=== PATIENT | male | born 1955 | race Caucasian/White ===

== ENCOUNTER 2025-01-20 06:49 | Day surgery (SDC) | payer OTHER ==
[2025-01-20] VITALS (10 sets, daily range): BP systolic 117–146; BP diastolic 60–71; PULSE 70–81; RESP 12–16; TEMP 97.7; O2SAT 93–98
[~2025-01-20] VITALS: Ht 167.6 cm; Wt 76.8 kg
[2025-01-20] MEDS ORDERED: ATOR10TA87 PO (07:25)
[2025-01-20] MEDS ORDERED: METF-438 PO (07:25)
[2025-01-20] MEDS ORDERED: OMEP20CA16 PO (07:25)
[2025-01-20] MEDS ORDERED: GLIP10TA18 PO (07:26)
[2025-01-20] MEDS ORDERED: SITA100T15 PO (07:27)
[2025-01-20] MEDS ORDERED: EMPA25TA PO (07:29)
[2025-01-20] MEDS ORDERED: LOSA-415 PO (07:29)
[2025-01-20] MEDS ORDERED: DESO15CR13 TOP (07:30)
[2025-01-20 07:51] LABS: BASOPHILS % (AUTO) 0.5 % (0-1); EOSINOPHILS # (AUTO) 0.2 X10'3 (0-0.9); HEMATOCRIT 46.8 % (42.0-52.0); HEMOGLOBIN 15.9 g/dl (14.0-17.9); LYMPHOCYTES # (AUTO) 1.5 X10'3 (1.1-4.8); LYMPHOCYTES % (AUTO) 20.7 % (21-51); MEAN CORPUSCULAR HEMOGLOBIN 30.7 PG (27.0-31.0); MEAN CORPUSCULAR HGB CONC 33.9 g/dL (33.0-36.5); MEAN CORPUSCULAR VOLUME 90.4 FL (78-98); MEAN PLATELET VOLUME 8.2 FL (7.4-10.4); MONOCYTES # (AUTO) 0.9 X10'3 (0-0.9); MONOCYTES % (AUTO) 11.5 % (2-12); NEUTROPHILS # (AUTO) 4.8 X10'3 (1.8-7.7); NEUTROPHILS % (AUTO) 64.3 % (42-75); PLATELET COUNT 197 X10'3 (140-440); RED BLOOD COUNT 5.17 X10'6 (4.70-6.10); RED CELL DISTRIBUTION WIDTH 13.8 % (11.5-14.5); WHITE BLOOD COUNT 7.4 X10'3 (4.5-11.0)
[2025-01-20 07:58] LABS: ALBUMIN 4.1 G/DL (3.4-5.0); ANION GAP 8 (8-16); BLOOD UREA NITROGEN 15 MG/DL (7-18); BUN/CREATININE RATIO 19.2 (10.0-20.0); CALCIUM 8.7 MG/DL (8.5-10.1); CHLORIDE 107 MMOL/L (99-107); CREATININE 0.78 MG/DL (0.60-1.10); GLUCOSE 168 MG/DL (70-104); MAGNESIUM 2.1 MG/DL (1.5-2.4); POTASSIUM 4.1 MMOL/L (3.5-5.1); PROTHROMBIN TIME 10.7 SECONDS (9.0-12.0); SODIUM 143 MMOL/L (135-145); TOTAL CARBON DIOXIDE 28.2 MMOL/L (24-32); eCRCL 80 ML/MIN; eGFR > 90 ML/MIN
[2025-01-20] MEDS: sodium bicarbonate 1meq/ml syr 150 ML in dextrose 5%-water 1,000 ML IV ONE (08:16)
[2025-01-20] MEDS: normal saline 1,000 ML IV SCH (08:16)
[2025-01-20] MEDS ORDERED: LIDOcaine 1% (10mg/ml) 2ml vial ONE (08:51)
[2025-01-20] MEDS ORDERED: verapamil 2.5 mg/ml inj IV ONE (08:51)
[2025-01-20] MEDS ORDERED: heparin 1,000unit/ml 10ml vial 10 ML ONE (08:52)
[2025-01-20] MEDS ORDERED: iohexol 350 MG/ML 50ML vial IV ONE (08:52)
[2025-01-20] MEDS ORDERED: iohexol 350MG/ML 100ml bottle IV ONE ×2 (08:52→10:26)
[2025-01-20] MEDS ORDERED: fentaNYL/PF 50MCG/1 ML 2ML syringe ONE (08:52)
[2025-01-20] MEDS ORDERED: midazolam 1 mg/ML 2ml injection ONE ×3 (08:52→10:24)
[2025-01-20] MEDS ORDERED: nitroGLYCERIN 500mcg/5mL D5W 5 ML IV ONE (08:53)
[2025-01-20] MEDS: diphenhydrAMINE 25mg capsule PO PRN (09:06)
[2025-01-20] MEDS ORDERED: HYDROcodone/acetaminophen 5mg/325mg tablet PO PRN (11:15)
[2025-01-20] MEDS ORDERED: HYDROcodone/acetaminophen 10/325mg tab PO PRN (11:15)
[2025-01-20] MEDS ORDERED: ondansetron/PF 4mg/2ml inj IV PRN (11:15)
[2025-01-20] MEDS ORDERED: proCHLORperazine 10 MG/2 ml inj IV PRN (11:15)
[2025-01-20] MEDS ORDERED: mag hydrox/Alum hydrox/simeth 30ml oral suspension PO ONE (12:50)
== END 2025-01-20 14:10 | disposition home or self-care (01) ==
LOC: SSTAY O 06:49
PROVIDERS: ATTEND Internal Medicine Cardiovascular Disease
DX: I35.0 Nonrheumatic aortic (valve) stenosis (principal); I27.20 Pulmonary hypertension, unspecified; I25.10 Atherosclerotic heart disease of native coronary artery without angina pectoris; I10 Essential (primary) hypertension; Z79.899 Other long term (current) drug therapy; E08.22 Diabetes mellitus due to underlying condition with diabetic chronic kidney disease; Z88.8 Allergy status to other drugs, medicaments and biological substances; Z98.890 Other specified postprocedural states; Z80.8 Family history of malignant neoplasm of other organs or systems; Z79.82 Long term (current) use of aspirin
CPT/HCPCS: 36415; 80048; 82948; 83735; 85025; 85610; 93005; 93460; 99152; 99153; A6258; J1644; J2003; J2250; J3010; J3490; J7030; J7070; Q0163; Q9967; A6402; C1751; C1769; C1887; C1894

== ENCOUNTER 2025-02-03 09:45 | Outpatient (CLI) | payer OTHER ==
[~2025-02-03 09:45] MED LIST: ATOR10TA87 PO; DESO15CR13 TOP; EMPA25TA PO; GLIP10TA18 PO; IODIXANOL 320 MG/ML INFUS..BTL 100ML IV ONE; LOSA-415 PO; METF-438 PO; OMEP20CA16 PO; SITA100T15 PO
[2025-02-03 10:35] LABS: BASOPHILS % (AUTO) 0.5 % (0-1); EOSINOPHILS # (AUTO) 0.2 X10'3 (0-0.9); EOSINOPHILS % (AUTO) 3.4 % (0-6); HEMATOCRIT 43.7 % (42.0-52.0); HEMOGLOBIN 15.2 g/dl (14.0-17.9); LYMPHOCYTES # (AUTO) 1.6 X10'3 (1.1-4.8); LYMPHOCYTES % (AUTO) 21.4 % (21-51); MEAN CORPUSCULAR HEMOGLOBIN 31.1 PG (27.0-31.0); MEAN CORPUSCULAR HGB CONC 34.7 g/dL (33.0-36.5); MEAN CORPUSCULAR VOLUME 89.6 FL (78-98); MEAN PLATELET VOLUME 8.5 FL (7.4-10.4); MONOCYTES # (AUTO) 0.7 X10'3 (0-0.9); MONOCYTES % (AUTO) 9.9 % (2-12); NEUTROPHILS # (AUTO) 4.7 X10'3 (1.8-7.7); NEUTROPHILS % (AUTO) 64.8 % (42-75); PLATELET COUNT 199 X10'3 (140-440); RED BLOOD COUNT 4.87 X10'6 (4.70-6.10); RED CELL DISTRIBUTION WIDTH 13.3 % (11.5-14.5); WHITE BLOOD COUNT 7.3 X10'3 (4.5-11.0)
[2025-02-03 10:45] LABS: APTT 25 SECONDS (22-32); PROTHROMBIN TIME 10.6 SECONDS (9.0-12.0)
[2025-02-03 10:59] LABS: ALANINE AMINOTRANSFERASE 34 U/L (12-78); ALBUMIN 3.9 G/DL (3.4-5.0); ALBUMIN/GLOBULIN RATIO 1.3 (1.1-1.5); ALKALINE PHOSPHATASE 115 IU/L (46-116); ANION GAP 8 (8-16); ASPARTATE AMINO TRANSFERASE 24 U/L (10-37); BILIRUBIN,TOTAL 0.7 MG/DL (0.1-1.0); BLOOD UREA NITROGEN 15 MG/DL (7-18); CALCIUM 8.8 MG/DL (8.5-10.1); CHLORIDE 104 MMOL/L (99-107); CREATININE 0.79 MG/DL (0.60-1.10); GLUCOSE 205 MG/DL (70-104); PRO BRAIN NATRIURETIC PEPTIDE 87 PG/ML (0-125); SODIUM 141 MMOL/L (135-145); TOTAL CARBON DIOXIDE 29.4 MMOL/L (24-32); eGFR > 90 ML/MIN
--- NOTE | 2025-02-03 11:32 | VASCULAR REPORT ---
CAROTID ARTERIAL DOPPLER CLINICAL HISTORY: Preop. TECHNIQUE: Doppler study of bilateral carotid/vertebral arteries were performed. Comparison: None FINDINGS: There is intimal thickening in the bilateral common carotid arteries. The bilateral common carotid, e xternal and internal carotid arteries appear patent without hemodynamically significant stenosis. Th ere is no significant flow limiting plaque formation identified.The spectral wave forms and peak syst olic velocities are within normal limits. Antegrade flow is present within the vertebral arteries. Right ICA/CCA PSV ratio = 1.5 . Left ICA/CCA PSV ratio = 1.0 . IMPRESSION: 1. No hemodynamically significant stenosis within the carotid arteries. HS:Y
--- NOTE | 2025-02-03 12:03 | RADIOLOGY REPORT ---
DI CHEST,TWO VIEWS CLINICAL HISTORY: TAVR COMPARISON: None TECHNIQUE: Frontal and lateral view of the chest was obtained FINDINGS: Lines and Tubes: None Lungs: No focal consolidation. Pleura: No effusion. No pneumothorax. Cardiomediastinal contours: Unremarkable Bones: No acute osseous abnormality. IMPRESSION: No acute cardiopulmonary disease.
--- NOTE | 2025-02-04 13:07 | RADIOLOGY REPORT ---
Procedure: CT CTA TAVR Reason for study/Clinical History: Chest pain, evaluate for dissection. Comparison Study: None available at time of dictation. Exam Date: 02/03/2025 12:48 PM TECHNIQUE: Multiplanar reformatted images were generated from volumetric data acquired on a multidetector CT [facility]. Cardiac gating was utilized. Arterial phase images were obtained through the chest, abdomen and pelvis following intravenous administration of contrast material. 100 mL visipaque [address] dose reduction techniques were utilized. 3-D reconstructions were performed on an independent work station. Radiation Dose Information: CT Dose: CTDI volume is 65 mGy. Dose-length product is 2232 mGy*cm FINDINGS: Vascular: Aortic measurements: Aortic annulus: 26.2 x 20.8 mm Sinus of valsalva: right cusp 29.9 mm, left cusp 30.7 mm, non-coronary cusp 32.7 mm Right coronary distance: 15 Left coronary distance: 17.6 ST junction 24.4 mm Ascending aorta 28.4 mm Aortic arch 24.9 mm Descending aorta 23.3 mm Aortic hiatus 20.8 mm Upper abdominal aorta 18 mm Minimal abdominal aorta 9.38 mm Right common iliac 6.48 mm, tortuosity index 1.03 Left common iliac 6.21 mm, tortuosity index 1.04 There is normal caliber of aorta. No aortic dissection. Aortic arch anatomy is conventional. There is conventional coronary artery anatomy. Scattered calcified atherosclerotic plaque. Moderate high-gra de stenosis of the proximal celiac artery. No central pulmonary embolism. There is normal dimension of the main pulmonary artery. Heart is normal. There are no intracardiac filling defects. No pericardial effusion. Mediastinum: There is no significant intrathoracic or axillary lymphadenopathy by CT size criteria. Lungs: Atelectasis and scarring in the lung bases. Pleura: No effusion or pneumothorax. Chest wall: No acute abnormality. Abdomen and Pelvis: Liver: Subcentimeter early arterial enhancing focus in the inferior right lobe of the liver. Gallbladder: Normal in appearance. Spleen: Normal in appearance. Pancreas: Normal in appearance. Adrenals: Normal in appearance. Kidneys: Left lower pole renal calculus. Bilateral renal cysts. No hydronephrosis. Bowel: Sigmoid diverticulosis. No obstruction. Peritoneum: No free air or free fluid. Lymph nodes: Subcentimeter mesenteric lymph nodes. Pelvic structures: No pelvic mass. Bones: Degenerative changes in the spine and hips. IMPRESSION: 1. TAVR planning with vascular measurements as described above. 2. 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 3. Subcentimeter early arterial enhancing focus in the inferior right lobe of the liver could be furt her evaluated with MRI of the abdomen with contrast. Nonobstructive left lower pole renal calculus. Bilateral renal cysts. Sigmoid diverticulosis. Nonspecific mesenteric lymph nodes. HS:Y
== END 2025-02-03 23:59 | disposition home or self-care (01) ==
LOC: RAD 09:45
PROVIDERS: ATTEND Internal Medicine Cardiovascular Disease
DX: J98.11 Atelectasis (principal); I35.0 Nonrheumatic aortic (valve) stenosis; R06.02 Shortness of breath; I65.29 Occlusion and stenosis of unspecified carotid artery; J98.4 Other disorders of lung; N20.0 Calculus of kidney; M51.369 Other intervertebral disc degeneration, lumbar region without mention of lumbar back pain or lower extremity pain; M16.0 Bilateral primary osteoarthritis of hip; N28.1 Cyst of kidney, acquired; K57.30 Diverticulosis of large intestine without perforation or abscess without bleeding
CPT/HCPCS: 36415; 71046; 71275; 74174; 75572; 80053; 83880; 85025; 85610; 85730; 93880; Q9967

== ENCOUNTER 2025-02-23 10:01 | Inpatient (IN) | payer OTHER ==
--- NOTE | 2025-02-20 13:14 | ELECTROCARDIOGRAPH REPORT ---
[facility] Test Date: 2025-02-20 Test Time: 13:11:23 Pat Name: YUMI OREILLY Department: PRE/OP CARDIOLOGY Patient ID: [id number] Room: Gender: M Medical/Surgery Registered Nurse: LUISA : 1955 Requested By: CUAUHTEMOC CHAPPELL Order Number: [id number] Reading MD: Dr. MAXIMO Scott Measurements Intervals [place] Rate: 84 P: 70 MA: 142 QRS: 72 QRSD: 100 T: 33 QT: 372 QTc: 440 Interpretive Statements Sinus rhythm Electronically Signed On 02-20-2025 19:14:[address] MAXIMO Scott Please click the below link to view image of tracing.
[2025-02-20 13:51] LABS: BASOPHILS % (AUTO) 0.4 % (0-1); EOSINOPHILS # (AUTO) 0.2 X10'3 (0-0.9); EOSINOPHILS % (AUTO) 2.6 % (0-6); LYMPHOCYTES # (AUTO) 1.4 X10'3 (1.1-4.8); MEAN CORPUSCULAR HEMOGLOBIN 31.1 PG (27.0-31.0); MEAN CORPUSCULAR HGB CONC 34.1 g/dL (33.0-36.5); MEAN CORPUSCULAR VOLUME 91.1 FL (78-98); MEAN PLATELET VOLUME 8.6 FL (7.4-10.4); MONOCYTES # (AUTO) 0.7 X10'3 (0-0.9); MONOCYTES % (AUTO) 9.5 % (2-12); NEUTROPHILS % (AUTO) 68.5 % (42-75); PRE OP HEMATOCRIT 44.5 % (42.0-52.0); PRE OP HEMOGLOBIN 15.2 g/dL (14.0-17.9); PRE OP PLATELET COUNT 193 X10'3 (140-440); PRE OP WHITE BLOOD COUNT 7.3 10'3 (4.8-10.8); RED BLOOD COUNT 4.88 X10'6 (4.70-6.10); RED CELL DISTRIBUTION WIDTH 13.5 % (11.5-14.5)
[2025-02-20 13:58] LABS: BILIRUBIN,URINE NEGATIVE (Neg); CLARITY,URINE CLEAR (Clear); COLOR,URINE YELLOW (Yellow); GLUCOSE, URINE >=1000 mg/dl (Neg); KETONES,URINE NEGATIVE (Neg); LEUKOCYTE ESTERASE ,URINE NEGATIVE (Neg); NITRITES, URINE NEGATIVE (Neg); OCCULT BLOOD,URINE NEGATIVE (Neg); PROTEIN,URINE NEGATIVE (Neg); UROBILINOGEN,URINE 0.2 E.U/dL (0.2-1.0)
[2025-02-20 14:01] LABS: UA COLLECTION TYPE NON-SPECIFIED
[2025-02-20 14:04] LABS: BACTERIA,URINE NONE SEEN /HPF (Neg); MUCUS STRANDS NONE SEEN /LPF (Neg); PRE OP PROTIME 10.3 SECONDS (9.0-12.0); RBC,URINE 0-2 /HPF (0-2); SQUAMOUS EPITHELIAL CELL,UR NONE SEEN /LPF (FEW); WBC,URINE NONE SEEN /HPF (0-4)
[2025-02-20 14:17] LABS: ALBUMIN 3.9 G/DL (3.4-5.0); ALBUMIN/GLOBULIN RATIO 1.2 (1.1-1.5); ALKALINE PHOSPHATASE 125 IU/L (46-116); BLOOD UREA NITROGEN 14 MG/DL (7-18); BUN/CREATININE RATIO 14.6 (10.0-20.0); CALCIUM 8.9 MG/DL (8.5-10.1); CHLORIDE 103 MMOL/L (99-107); CREATININE 0.96 MG/DL (0.60-1.10); PRE OP ALT 29 U/L (30-65); PRE OP ANION GAP 11 (8-16); PRE OP AST 21 U/L (10-37); PRE OP BILIRUB, TOTAL 0.5 MG/DL (0.0-1.0); PRE OP SODIUM 142 MMOL/L (135-145); PRO BRAIN NATRIURETIC PEPTIDE 86 PG/ML (0-125); TOTAL CARBON DIOXIDE 27.6 MMOL/L (24-32); TOTAL PROTEIN 7.1 G/DL (6.4-8.2); eGFR 77 ML/MIN
[2025-02-20 14:18] LABS: HEMOGLOBIN A1C 7.4 % (4.5-6.2)
[2025-02-20 14:20] LABS: PRE OP GLUCOSE 264 MG/DL (70-104)
[2025-02-23] VITALS (23 sets, daily range): BP systolic 135–154; BP diastolic 63–90; PULSE 77–100; RESP 14–22; TEMP 97.4–98.6; O2SAT 93–97
[~2025-02-23] VITALS: Ht 167.6 cm; Wt 76.7 kg
[2025-02-23] MEDS: ceFAZolin 2gm in dextrose, iso 50 ML IV ONE (05:30)
[2025-02-23] MEDS: famotidine 20mg tablet PO ONE (05:30)
[~2025-02-23 10:01] MED LIST changes: +ASCO100031 PO; -DESO15CR13 TOP; -IODIXANOL 320 MG/ML INFUS..BTL 100ML IV ONE; +MULT-1085 PO; +VITA1CAP PO; +ZINC50TA60 PO; +nitroPRUSSIDE (NIPRIDE) (200MCG/ML) 100ML Drip IV SCH; +ondansetron/PF 4mg/2ml inj IV PRN; +phenylephrine inj 50 MG in normal saline 250ml IV solN IV SCH; +protamine sulfate 10mg/ml inj. ONE
[2025-02-23] MEDS: ringers solution, lacted 1,000 ML IV SCH ×2 (10:50→11:30)
[2025-02-23] MEDS: VANCOMYCIN 1,500MG inj. 1,500 MG in normal saline 500ml IV soln 300 ML IV ONE (10:50)
[2025-02-23] MEDS: aspirin 325mg tablet PO ONE (10:50)
[2025-02-23] MEDS ORDERED: ondansetron/PF 4mg/2ml inj IV PRN ×2 (11:30→14:30)
[2025-02-23] MEDS ORDERED: morphine 2 MG/ML inj. syringe IV PRN (11:30)
[2025-02-23] MEDS ORDERED: meperidine/PF 25mg/ml syringe IV PRN ×3 (11:30)
[2025-02-23] MEDS ORDERED: labetalol 20mg/4ml (5mg/ml) syringe IV PRN ×2 (11:30→14:30)
[2025-02-23] MEDS ORDERED: enalaprilat 1.25mg/ml 2ml vial IV PRN (11:30)
[2025-02-23] MEDS ORDERED: proCHLORperazine 10 MG/2 ml inj IV PRN ×2 (11:30→14:30)
[2025-02-23] MEDS ORDERED: morphine 4 MG/ML inj SYRINge IV PRN (11:30)
[2025-02-23] MEDS ORDERED: propofol inj 20 ML IV ONE (12:59)
[2025-02-23] MEDS ORDERED: LIDOcaine 1%/PF 5ML 10 MG/ML VIAL ONE (12:59)
[2025-02-23] MEDS ORDERED: fentaNYL/PF 50MCG/1 ML 2ML syringe ONE (12:59)
[2025-02-23] MEDS ORDERED: midazolam 1 mg/ML 2ml injection ONE (12:59)
[2025-02-23] MEDS ORDERED: heparin 1,000unit/ml 10ml vial 10 ML ONE (13:00)
[2025-02-23] MEDS ORDERED: LIDOcaine 1% 30ml preserv. free vial ONE (13:05)
[2025-02-23] MEDS ORDERED: iohexol 350MG/ML 100ml bottle IV ONE (13:05)
[2025-02-23] MEDS ORDERED: potassium Cl 20 mEq SR tablet PO PRN (14:30)
[2025-02-23] MEDS ORDERED: potassium CL 10mEq/100ml bag 100 ML IV PRN (14:30)
[2025-02-23] MEDS ORDERED: potassium Cl 20mEq/100mL bag 100 ML IV PRN (14:30)
[2025-02-23] MEDS ORDERED: pantoprazole 40mg Tablet.DR PO PRN (14:30)
[2025-02-23] MEDS ORDERED: docusate sod 100mg capsule PO PRN (14:30)
[2025-02-23] MEDS ORDERED: diphenhydrAMINE 25mg capsule PO PRN (14:30)
[2025-02-23] MEDS ORDERED: DEXTROSE 15 GM of carb/4 tabs (each vial/BOTTLE has 4 tablets) PO PRN ×2 (14:30)
[2025-02-23] MEDS ORDERED: dextrose 50%-water 50ml dispensing syringe IV PRN ×2 (14:30)
[2025-02-23] MEDS ORDERED: potassium Cl 40MEQ/270ML bag 250 ML IV PRN (14:30)
[2025-02-23] MEDS ORDERED: magnesium sulf-water 2g/50mL 50 ML IV PRN (14:30)
[2025-02-23] MEDS ORDERED: ALPRAZolam 0.25mg tablet PO PRN (14:30)
[2025-02-23] MEDS ORDERED: glucagon, human recombinant 1mg kit SUBCUT PRN (14:30)
[2025-02-23] MEDS ORDERED: potassium Cl 40MEQ/1/2NS 520ml 520 ML IV PRN (14:30)
[2025-02-23] MEDS ORDERED: HYDROcodone/acetaminophen 5mg/325mg tablet PO PRN (14:30)
[2025-02-23] MEDS ORDERED: magnesium sulf-water 4G/100mL 100 ML IV PRN (14:30)
[2025-02-23] MEDS ORDERED: acetaminophen 1,000mg/100ml IV 100 ML IV ONE (14:33)
[2025-02-23] MEDS ORDERED: LIDOCAINE 2%/EPI 1:100,000 inj. Multi-dose 20 ML VIAL ONE (14:40)
--- NOTE | 2025-02-23 14:41 | OPERATIVE REPORT ---
Operative Report Providers to CC CC: Juan Rader MD ~ Date of Procedure: February 23, 2025 Pre-Operative Diagnosis: Severe Aortic Stenosis Post-Operative Diagnosis SAME as PRE-Op Procedure Performed 1. Ultrasound-guided access, bilateral femoral vessels. 2. Bilateral femoral angiography. 3. Ascending aortography 4. Temporary transvenous pacer to the RV apex. 5. Placement of a 23 (+1) mm Hayden S3 Resilia valve. Surgeon: Donnie Zapata MD Resistor Tester MD Dr. Sahil Bonilla MD Anesthesiologist: Navdeep Cisneros Type of Anesthesia: Other Findings: Severe Aortic Stensois Complications None Prosthetics\Implants used: Hayden 23 +1 mm S3 resilia Estimated Blood Loss: Minimal Specimen Removed: None Description of Procedure: The patient was brought to the high density press laborer in a fasting state. They underwent MAC anesthesia. Ultrasound was used to guide access to the bilateral femoral vessels, 7-Libyan sheath, right femoral artery, 6-Libyan sheath, left femoral artery and right femoral vein. Bilateral femoral angiograms were obtained. Heparin was given to maintain an ACT over 250 seconds. Two crisscross Percloses were placed on the left. We upsized to an 8-Libyan sheath. Two pigtail catheters placed in the ascending aorta. Ascending aortography done to determine the angle of deployment. Temporary transvenous pacer to the RV apex and confirmed capture. We upsized an 8-Libyan sheath to a 14-Libyan Hayden eSheath on the left. We crossed the aortic valve using a straight stiff exchange length Terumo wire supported by a 6-Libyan AL1 catheter. LV AO pressures were recorded. A EzLike extra support wire was placed in the left ventricle. A 23 (+1) mm Hayden S3 Resilia valve was brought to position and under rapid right ventricular pacing was deployed. Post-procedure, there was no AI and no residual . Guidewires and balloons were removed at this time. The temporary pacer was removed. The 14-Libyan Hayden eSheath was removed and two crisscross Percloses tied with adequate hemostasis. The arterial sheath on the right was removed and a single Perclose tied. The venous sheath on the right was removed and a single Angioseal used for h emostasis. Protamine was given to reverse the effects of heparin. The patient was stable post-procedure. Good pulses in the legs and no evidence of bleeding, transferred to the PACU in stable condition. HEMODYNAMICS: Pre: LV: 189/11 mmHg LVEDP: 24mmHg Ao: 139/65, MAP 95mmHg Post: LV: 135/11 mmHg LVEDP: 24 mmHg Ao: 133/60, MAP 86mmHg RESULTS: 1. Successful placement of a 23(+1) mm Hayden S3 Resilia valve, left transfemoral approach, two perclose devices. ASA 81mg QD 2. Diabetes: Diabetic Diet, RISS 3. Hypertension: Resume if blood pressure remains stable 4. Chronic Diastolic heart failure, LVEDP 24mmHg, pBNP wnl Patient will be watched in the recovery area until stable, then transferred to telemetry at that time. DONNIE ZAPATA MD February 23, 2025 14:41
--- NOTE | 2025-02-23 15:21 | ELECTROCARDIOGRAPH REPORT ---
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 MAXIMO Scott Measurements Intervals [place] Rate: 81 P: 82 FL: 149 QRS: 71 QRSD: 96 T: 46 QT: 399 QTc: 464 Interpretive Statements Sinus rhythm Electronically Signed On 02-23-2025 19:48:[address] MAXIMO Scott Please click the below link to view image of tracing.
[2025-02-23] MEDS: sod chloride 0.9% 10ml flush syringe IV SCH (16:00)
--- NOTE | 2025-02-23 16:51 | CARDIOLOGY REPORT ---
APPROVED REPORT EXAM: Focused, limited intraprocedural transthoracic 2D, spectral and color flow Doppler echocardiogr am during TAVR deployment. Patient Location: [facility] Blood Pressure: 133/76 mmHg Heart Rate: 84 bpm Rhythm: NSR Indications Severe Aortic Stenosis Hypertension COPD Diabetes 23 mm Hayden Antonio 3 Ultra RESILIA Bioprosthetic TAVR Sample Room Supervisor: Derrick Abbott DO / Interventionalist: Gonzales Zapata MD and Arsenio Sanchez MD. / Surgeon: Mahogany Buck MD. / Device rep: Jesus Still ELS Previous echo: 11/23/24 VA DL 55-60% EF ; JOSE 0.91 ; peak v 3.73 ; grad 55/40 ; VHD tr MR TR LEFT VENTRICLE LV appears normal in size with mild concentric hypertrophy. Overall systolic function appears normal. LVEF is 65%. POST: LVEF 70% RIGHT VENTRICLE RV is normal size and function. ATRIA Left atrium appears at least mildly dilated. Mobile interatrial septum - no flow detected. AORTIC VALVE Trileaflet AV appears heavily calcified with significant stenosis demonstrated by reduced excursion a nd increased transvalvular and ascending aorta turbulance. JOSE is measured at 0.65 cmsq. Peak/mean gr adients of 71/45 mmHG. Peak velocity is measured at 4.22 m/sec. No insufficiency. POST DEPLOYMENT (LO OP: 44): 23 mm Hayden Antonio 3 Ultra Resilia bioprosthetic TAVR appears well seated with normal func tion. Trace paravalvular leak present at 6,8, o'clock in TTE SAX BASE. JOSE is measured at 2.75 cmsq. Peak / mean gradients of 15 / 7 mmHG. Peak velocity is measured at 1.96m/sec. Poor Doppler angles due to supine positioning and lack of adequate imaging windows, quantitative data must be clinically cor related. MITRAL VALVE MV is thickened with moderate annular calcification. Trace mitral regurgitation. TRICUSPID VALVE The tricuspid valve is normal in structure. Trace tricuspid regurgitation. PULMONIC VALVE The pulmonary valve is normal in structure. Trace pulmonic regurgitation. PERICARDIUM There is no pericardial effusion. Other Information Study Quality: Adequate
[2025-02-23] MEDS ORDERED: INSULIN LISPRO 100 UNIT/ML INSULN.PEN MULTI-DOSE SQ SCH (17:00)
[2025-02-23] MEDS: INSULIN LISPRO 100 UNIT/ML INSULN.PEN MULTI-DOSE SQ SCH (17:00)
[2025-02-23] MEDS: ceFAZolin 1GM/D5W- ADD-VANTAGE 50 ML IV SCH (17:39)
[2025-02-23] MEDS: normal saline 1000ml 1,000 ML IV SCH (17:39)
[2025-02-23] MEDS: vancomycin/NS 1 GM ADD-VANTAGE 250 ML IV SCH (19:49)
[2025-02-23] MEDS: hydrALAZINE 20mg/ml inj. IV PRN (20:49)
[2025-02-23] MEDS: losartan 25mg tablet PO SCH (21:04)
[2025-02-23] MEDS: acetaminophen 325mg tablet PO PRN (23:46)
[2025-02-24] VITALS: BP 138/67; PULSE 97; RESP 16; O2SAT 97
[2025-02-24 02:00] VITALS: BP 138/65; PULSE 95; RESP 18; TEMP 97.9; O2SAT 95
[2025-02-24 04:00] VITALS: BP 134/71; PULSE 95; RESP 17; O2SAT 96
[2025-02-24 06:59] VITALS: BP 134/71; PULSE 92; RESP 21; TEMP 98.1; O2SAT 97
[2025-02-24 07:17] LABS: BASOPHILS % (AUTO) 0.4 % (0-1); EOSINOPHILS # (AUTO) 0.2 X10'3 (0-0.9); EOSINOPHILS % (AUTO) 2.2 % (0-6); HEMATOCRIT 42.3 % (42.0-52.0); HEMOGLOBIN 14.6 g/dl (14.0-17.9); LYMPHOCYTES # (AUTO) 0.9 X10'3 (1.1-4.8); LYMPHOCYTES % (AUTO) 8.7 % (21-51); MEAN CORPUSCULAR HEMOGLOBIN 30.7 PG (27.0-31.0); MEAN CORPUSCULAR HGB CONC 34.4 g/dL (33.0-36.5); MEAN PLATELET VOLUME 8.8 FL (7.4-10.4); MONOCYTES # (AUTO) 1.1 X10'3 (0-0.9); MONOCYTES % (AUTO) 11.1 % (2-12); NEUTROPHILS # (AUTO) 7.8 X10'3 (1.8-7.7); NEUTROPHILS % (AUTO) 77.6 % (42-75); PLATELET COUNT 155 X10'3 (140-440); RED BLOOD COUNT 4.76 X10'6 (4.70-6.10); RED CELL DISTRIBUTION WIDTH 13.3 % (11.5-14.5)
[2025-02-24] MEDS: atorvastatin 10mg tablet PO SCH (07:18)
[2025-02-24] MEDS: vitamin B comp w/Vit. C tab 1 TAB TABLET PO SCH (07:18)
[2025-02-24] MEDS: aspirin 81mg tab.chew PO SCH (07:18)
[2025-02-24] MEDS: zinc sulfate 220mg capsule PO SCH (07:18)
[2025-02-24] MEDS: multivitamins, therapeutics tablet PO SCH (07:18)
[2025-02-24] MEDS: ascorbic acid 500mg tablet PO SCH (07:18)
[2025-02-24] MEDS: pantoprazole 40mg Tablet.DR PO SCH (07:18)
[2025-02-24 07:43] LABS: ALANINE AMINOTRANSFERASE 26 U/L (12-78); ALBUMIN 3.4 G/DL (3.4-5.0); ALBUMIN/GLOBULIN RATIO 1.1 (1.1-1.5); ALKALINE PHOSPHATASE 94 IU/L (46-116); ANION GAP 10 (8-16); ASPARTATE AMINO TRANSFERASE 30 U/L (10-37); BILIRUBIN,TOTAL 1.1 MG/DL (0.1-1.0); BLOOD UREA NITROGEN 8 MG/DL (7-18); CHLORIDE 104 MMOL/L (99-107); CREATININE 0.73 MG/DL (0.60-1.10); GLUCOSE 129 MG/DL (70-104); MAGNESIUM 1.7 MG/DL (1.5-2.4); POTASSIUM 3.6 MMOL/L (3.5-5.1); PRO BRAIN NATRIURETIC PEPTIDE 254 PG/ML (0-125); SODIUM 138 MMOL/L (135-145); TOTAL PROTEIN 6.5 G/DL (6.4-8.2); eCRCL 85 ML/MIN; eGFR > 90 ML/MIN
--- NOTE | 2025-02-24 08:17 | RADIOLOGY REPORT ---
CHEST RADIOGRAPH Indication: s/p TAVR Technique: Single frontal view of the chest was obtained Comparison: None FINDINGS: Lines and Tubes: None Lungs: No focal consolidation. Pleura: No effusion. No pneumothorax. Cardiomediastinal contours: Unremarkable Bones: No acute osseous abnormality. IMPRESSION: No acute cardiopulmonary disease.
--- NOTE | 2025-02-24 08:17 | ELECTROCARDIOGRAPH REPORT ---
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 MAXIMO Scott Measurements Intervals [place] Rate: 91 P: 96 [place]: 146 QRS: 82 QRSD: 87 T: 35 QT: 358 QTc: 441 Interpretive Statements Sinus rhythm Consider left atrial enlargement Borderline right axis deviation Electronically Signed On 02-24-2025 19:05:[address] MAXIMO Scott Please click the below link to view image of tracing.
[2025-02-24 11:06] VITALS: BP 147/80; PULSE 105; RESP 18; TEMP 97.9; O2SAT 96
[2025-02-24] MEDS ORDERED: ASPI81TA53 PO (15:21)
--- NOTE | 2025-02-25 14:13 | CARDIOLOGY REPORT ---
APPROVED REPORT EXAM: Limited 2D, Doppler, and color-flow Echocardiogram. Patient Location: 302 Blood Pressure: 147/80 mmHg Heart Rate: 90 bpm Rhythm: NSR Indications ONE DAY FOLLOW-UP TAVR 23 mm Hayden Antonio 3 Ultra RESILIA Bioprosthetic TAVR Curriculum And Assessment Coordinator: Derrick Abbott DO Previous echo 02/23/2025 [facility] EF 70%; JOSE 2.75; Peak v 1.96; Grad 15/7 2D Dimensions LVOT Diameter 2.29 (1.8-2.4cm) IVC 24.86 mm Aortic Valve AoV Peak [place]. 216.7 cm/s AoV VTI 39.5 cm AO Peak GR. 18.8 mmHg AO Mean GR. 10 mmHg LVOT VTI 25.60 cm LVOT Peak [place]. 130.0 cm/s JOSE(VTI)/BSA 2.67 cm2/m2 JOSE (VTI) 2.67 cm2 Tricuspid Valve RAP ESTIMATE 10 mmHg LEFT VENTRICLE LV appears normal in size with mild concentric hypertrophy. Overall systolic function is normal. LVEF is 65-70%. RIGHT VENTRICLE RV is normal size and function. AORTIC VALVE 23 mm Hayden Antonio 3 Ultra RESILIA Bioprosthetic TAVR appears well seated. JOSE is measured at 2.67 cmsq. Peak/mean gradients of 19/10 mmHG. Peak velocity is measured at 2.17 m/sec. Trivial paravalvula r leak at 7 oclock PSAX TTE. MITRAL VALVE MV is thickened with mild annular calcification. Trace mitral regurgitation. TRICUSPID VALVE The tricuspid valve is normal in structure. Trace tricuspid regurgitation. PULMONIC VALVE The pulmonary valve is normal in structure. Trace pulmonic regurgitation. PERICARDIUM Trivial pericardial effusion with no evidence of hemodynamic compromise. Other Information Study Quality: Adequate Conclusion LV appears normal in size with mild concentric hypertrophy. Overall systolic function is normal. LVEF is 65-70%. RV is normal size and function. 23 mm Hayden Antonio 3 Ultra RESILIA Bioprosthetic TAVR appears well seated. JOSE is measured at 2.67 cmsq. Peak/mean gradients of 19/10 mmHG. Peak velocity is measured at 2.17 m/sec. Trivial paravalvula r leak at 7 oclock PSAX TTE. MV is thickened with mild annular calcification. Trace mitral regurgitation. The tricuspid valve is normal in structure. Trace tricuspid regurgitation. The pulmonary valve is normal in structure. Trace pulmonic regurgitation. Trivial pericardial effusion with no evidence of hemodynamic compromise.
--- NOTE | 2025-02-28 12:03 | DISCHARGE SUMMARY ---
Discharge Summary Providers to CC ~ Discharge Summary Admission Diagnosis: Severe Aortic Stenosis Hospital Course DATE OF ADMISSION: 02/23/25 DATE OF DISCHARGE: 02/24/25 Discharge Diagnosis\Comment: Severe aortic stenosis status post TAVR Diabetes mellitus type 2 Hypertension Chronic diastolic heart failure Operations\Procedures: 1. Ultrasound-guided access, bilateral femoral vessels. 2. Bilateral femoral angiography. 3. Ascending aortography 4. Temporary transvenous pacer to the RV apex. 5. Placement of a 23 (+1) mm Hayden S3 Resilia valve. Consultants: No consultants Complications: No complications Condition on DC: Stable New Medications: Aspirin (Children's Aspirin) 81 Mg Tab.chew 81 MG PO Q24H@0830 for 30 Days, #30 TAB.CHEW Continued Medications: Ascorbic Acid (Vitamin C) 1,000 Mg Tablet 1 TAB PO DAILY for 15 Days, #15 TAB 0 Refills DIRECTED Atorvastatin Calcium* (Lipitor*) 10 Mg Tablet 1 TAB PO DAILY, TAB Empagliflozin (Jardiance) 25 Mg Tablet 1 TAB PO DAILY, TAB 0 Refills Glipizide (Glipizide) 10 Mg Tablet 1 TAB PO Q12H, TAB 0 Refills Losartan Potassium* (Cozaar*) 25 Mg Tablet 1 TAB PO HS, TAB Metformin HCl (Metformin HCl) 1,000 Mg Tablet 1 TAB PO BID Multivitamin (Multi Vitamin Daily) 1 Each Tablet 1 TAB PO DAILY for 30 Days, #30 TAB 0 Refills Omeprazole (Omeprazole) 20 Mg Capsule.dr 1 CAP PO DAILY Sitagliptin Phosphate* (Januvia*) 100 Mg Tablet 1 TAB PO DAILY, TAB Vitamin B Complex (Vitamin B Complex) 1 Each Capsule 1 CAP PO DAILY for 30 Days, #30 CAP 0 Refills Zinc Amino Acid Chelate (Zinc) 50 Mg Tablet 1 TAB PO DAILY Discharge Summary: This is a 69-year-old male who presented for planned TAVR. Underwent placement of a 23 mm (+1) Hayden S3 resilient valve via the left transfemoral approach. Please see Dr. Gina Zapata's dictation for further details on the procedure. Was monitored overnight in the telemetry unit. Patient remained hemodynamically stable. Has been up and ambulatory with no complaints of chest pain or pressure. No shortness a breath. No dizziness, lightheadedness or syncope. Postoperative testing included an EKG which demonstrates sinus rhythm. Echocardiogram demonstrates an LVEF 65-70%. Aortic valve well seated. Trivial perivalvular leak noted at 7:00. Postoperative testing was reviewed by Dr. Lv Zapata. Physical exam prior to discharge: General: Awake, alert, oriented. No apparent distress Neck: Supple. Normal range of motion. No JVD Respiratory: Lungs are clear to auscultation bilaterally. No respiratory distress. Chest: Normal shape and size. No accessory muscle use. Cardiovascular: Regular rate and rhythm. S1-S2. No murmur, gallop, rub. Gastrointestinal: Abdomen is soft. Nontender to palpation. Bowel sounds present. Extremities: No lower extremity edema, cyanosis or clubbing. Femoral cath sites with dressings clean dry and intact. No ecchymosis or swelling. No hematoma. Neurologic: Alert and oriented x4. Nonfocal Psychiatric: Normal mood and affect. Skin: Normal color. Warm and dry. Plan: Patient will be discharged home in stable condition. Medications reviewed. He will hold his metformin as instructed. He will follow up as scheduled. Activity restrictions reviewed. Discussed with supervising physician, Dr. Gina Zapata in agreement with discharge home. *Problems/Diagnosis: (1) Aortic stenosis (2) Diabetes mellitus (3) Hypertension (4) Chronic diastolic heart failure Total Time Spent on D/C: Up to 30 Minutes Counseling Services Smoking & Tobacco Cessation: N/A LUKASZ MEDELLIN NP February 28, 2025 12:03
== END 2025-02-24 15:43 | disposition home or self-care (01) | DRG 267 ==
LOC: PAS IN 10:01 → PCU 3S 15:49
PROVIDERS: ADMIT Internal Medicine Cardiovascular Disease; ATTEND Internal Medicine Cardiovascular Disease
PROC: B41D1ZZ Fluoroscopy of Aorta and Bilateral Lower Extremity Arteries using Low Osmolar Contrast (ICD-10-PCS; 2025-02-23)
PROC: 02RF38Z Replacement of Aortic Valve with Zooplastic Tissue, Percutaneous Approach (ICD-10-PCS; principal; 2025-02-23 13:18)
DX: I35.0 Nonrheumatic aortic (valve) stenosis (principal); Z00.6 Encounter for examination for normal comparison and control in clinical research program; I50.32 Chronic diastolic (congestive) heart failure; I11.0 Hypertensive heart disease with heart failure; E11.9 Type 2 diabetes mellitus without complications; Z79.899 Other long term (current) drug therapy
CPT/HCPCS: 33361; 36415; 71045; 76937; 80053; 81001; 82948; 83036; 83735; 83880; 85025; 85347; 85610; 85730; 86885; 86900; 86901; 86920; 87081; 93005; 93308; A4618; A6258; A6449; C1756; C1760; C1769; C1894; G0378; J0131; J0360; J0690; J1644; J1815; J2003; J2250; J2371; J2704; J2720; J3010; J3370; J3490; J7030; J7040; J7050; J7120; P9016; Q9967